=== PATIENT | male | born 1955 | race Caucasian/White ===

== ENCOUNTER 2017-11-23 21:33 | Inpatient (IN) | END 2018-01-01 17:53 | DRG 871 ==

== ENCOUNTER 2018-04-14 19:37 | Inpatient (IN) | END 2018-04-21 12:50 | disposition home or self-care (01) | DRG 439 ==

== ENCOUNTER 2018-05-13 06:50 | Inpatient (IN) | END 2018-05-23 16:03 | disposition home health service (06) | DRG 405 ==

== ENCOUNTER 2018-09-03 12:54 | Day surgery (SDC) | payer OTHER ==
[~2018-09-03] VITALS: Ht 188 cm; Wt 103.3 kg
[~2018-09-03 12:54] MED LIST: AMLO2.5T78 PO; ASPI81TA52 PO; CLOP75TA27 PO; FAMO20TA18 PO; LEVO100T82 PO; SULF1TAB31 PO
[2018-09-03 14:20] VITALS: Ht 188 cm; Wt 103.3 kg
[2018-09-03 14:21] VITALS: BP 131/85; PULSE 77; RESP 18
== END 2018-09-03 15:45 | disposition home or self-care (01) ==
LOC: GIL 12:54 → SDS 12:54 → GIL 15:45
PROVIDERS: ATTEND Internal Medicine Gastroenterology
DX: R10.9 Unspecified abdominal pain (principal); Z53.8 Procedure and treatment not carried out for other reasons

== ENCOUNTER 2018-10-28 11:54 | Day surgery (SDC) | payer OTHER ==
[2018-10-28] VITALS (8 sets, daily range): BP systolic 94–138; BP diastolic 69–82; PULSE 65–75; RESP 14–23
[~2018-10-28 11:54] MED LIST changes: -CLOP75TA27 PO; -SULF1TAB31 PO
--- NOTE | 2018-10-28 13:31 | PREAC ---
Date/Time of Note Date/Time of Note DATE: 10/28/18 TIME: 13:30 Anesthesia Eval and Record Evaluation Time Pre-Procedure Interview DATE: 10/28/18 TIME: 13:30 Age 63 Sex male NPO: 8 hrs Preoperative diagnosis s/p cbd stent Planned procedure ERCP removal of Stent Past Medical History Past Medical History: Includes Cardio: HTN Endo: Hypothyroid Neuro: Other (carotid stent) Surgery & Anesthesia Issues No known issue Meds Anticoagulation: No Beta Celina within 24 hr: No Reason Beta Celina not given: Pt. not on B-Celina Reported Medications Levothyroxine Sodium* (Levoxyl*) 100 Mcg Tablet, 100 MCG PO BEFORE BREAKFAST, #30 TAB 05/13/18 Amlodipine Besylate* (Amlodipine Besylate*) 2.5 Mg Tablet, 2.5 MG PO DAILY, #30 TAB 05/13/18 Famotidine* (Famotidine*) 20 Mg Tablet, 20 MG PO DAILY, #30 TAB 18 Aspirin (Low Dose Aspirin) 81 Mg Tablet.dr, 81 MG PO DAILY, #30 TAB 05/13/18 Meds reviewed: Yes Allergies Coded Allergies: No Known Allergy (Unverified , 10/28/18) Allergies Reviewed: Yes Labs/Studies Labs Reviewed: Reviewed by anesthesiologist test: N/A Studies: ECG (sr), CXR (n/a) Pre-procedure Exam Airway: Adequate mouth opening Mallampati: Mallampati I Teeth: Abnormal (denture) Lung: Normal Heart: Normal ASA Physical Status ASA physical status: 2 Emergency: None Planned Anesthetic General/MAC: ETT Planned Pain Management Parenteral pain med Pre-operative Attestations Prior to commencing anesthesia and surgery, the patient was re-evaluated, there was verification of: *The patient's identity *The results of appropriate recent lab work and preoperative vital signs *The above evaluation not changing prior to induction *Anesthetic plan, risk benefits, alternative and complications discussed with patient/family; questions answered; patient/family understands, accepts and wishes to proceed. ELBERT COLON MD October 28, 2018 13:31
[2018-10-28] MEDS ORDERED: PROPOFOL 20 ML ONE ×2 (13:35→14:47)
[2018-10-28] MEDS ORDERED: MIDAZOLAM 1 MG/ML 2 ML INJ ONE (13:35)
[2018-10-28] MEDS ORDERED: FENTAnyl 50 MCG/ML VIAL ONE (13:35)
[2018-10-28] MEDS ORDERED: ONDANSETRON 4 MG INJ ONE (13:35)
[2018-10-28] MEDS ORDERED: ROCURONIUM 50 MG INJ ONE (13:35)
[2018-10-28] MEDS ORDERED: METOCLOPRAMIDE 10 MG INJ ONE (13:35)
[2018-10-28] MEDS ORDERED: IOHEXOL 300MG/ML 30 ML BTL ONE ×2 (13:39→13:41)
--- NOTE | 2018-10-28 13:41 | HPN ---
Date/Time of Note Date/Time of Note DATE: 10/28/18 TIME: 13:41 Interval H&P Admission Note Pt. seen H&P reviewed: No system changes KEYA TAN October 28, 2018 13:41
[2018-10-28] MEDS ORDERED: ONDANSETRON 4 MG INJ IV PRN (14:00)
[2018-10-28] MEDS ORDERED: HYDROmorphONE 1 MG/5 ML IV SYRINGE IV PRN ×3 (14:00)
[2018-10-28] MEDS ORDERED: MEPERIDINE 25 MG INJ IV PRN (14:00)
[2018-10-28] MEDS ORDERED: hydrALAzine 20 MG INJ IV PRN (14:00)
[2018-10-28] MEDS ORDERED: FENTAnyl 50 MCG/ML VIAL IV PRN ×3 (14:00)
[2018-10-28] MEDS ORDERED: LABETALOL HCL 20MG INJ IV PRN (14:00)
[2018-10-28] MEDS ORDERED: INDOMETHACIN 50 MG SUPP PR ONE (14:00)
[2018-10-28] MEDS ORDERED: DIPHENHYDRAMINE 50 MG INJ IV PRN (14:00)
[2018-10-28] MEDS ORDERED: EPHEDrine 25 MG/5 ML SYG ONE ×2 (14:04→14:56)
[2018-10-28] MEDS ORDERED: PHENYLephrine (100 MCG/ML) 10ML SYG ONE (14:56)
--- NOTE | 2018-10-29 07:55 | PAC ---
Date/Time of Note Date/Time of Note DATE: 10/29/18 TIME: 07:55 Post-Anesthesia Notes Post-Anesthesia Note Last documented vital signs Vital Signs Date Temp Pulse Resp B/P (MAP) Pulse Ox O2 O2 Flow FiO2 Time Delivery Rate 10/28/18 98.0 65 18 124/82 98 Room Air 16:18 (96) Activity: WNL Respiratory function: WNL Cardiovascular function: WNL Mental status: Baseline Pain reasonably controlled: Yes Hydration appropriate: Yes Nausea/Vomiting absent: No ELBERT COLON MD October 29, 2018 07:55
== END 2018-10-28 16:53 | disposition home or self-care (01) ==
LOC: GIL 11:54 → SDS 11:54 → GIL 16:53
PROVIDERS: ATTEND Internal Medicine Gastroenterology
DX: Z46.59 Encounter for fitting and adjustment of other gastrointestinal appliance and device (principal); I10 Essential (primary) hypertension; E03.9 Hypothyroidism, unspecified
CPT/HCPCS: 43262; J2250; J2370; J2405; J2765; J3010; Q9967; Z7512; Z7610